=== PATIENT | female | born 1960 | race Caucasian/White ===

== ENCOUNTER 2019-01-22 09:04 | Day surgery (SDC) | payer BC ==
[~2019-01-22] VITALS: Ht 165.1 cm; Wt 56.6 kg
[~2019-01-22 09:04] MED LIST: HYDACE5 PO; IBUP800 PO; MSM1000 MG; NAPR500 PO; PANT40 PO; RXHYDACE PO; VALA500; ZYRTEC10 M1
[2019-01-22] MEDS ORDERED: [UNRECOGNIZED DRUG - OTHER] (09:37)
[2019-01-22] MEDS ORDERED: ZOLP10 (09:37)
[2019-01-22] MEDS ORDERED: ALLEGRA ALLERG180 MG (09:38)
[2019-01-22] MEDS ORDERED: IMVEXXY10 MCG (09:38)
== END 2019-01-22 11:00 | disposition home or self-care (01) ==
LOC: ORSCSDS 09:04
PROVIDERS: Surgery
PROC: 0DJD8ZZ Inspection of Lower Intestinal Tract, Via Natural or Artificial Opening Endoscopic (ICD-10-PCS; principal; 2019-01-22 10:15)
DX: Z12.11 Encounter for screening for malignant neoplasm of colon (principal); A69.20 Lyme disease, unspecified; Z86.010 Personal history of colon polyps; J45.909 Unspecified asthma, uncomplicated; F17.210 Nicotine dependence, cigarettes, uncomplicated; Z79.899 Other long term (current) drug therapy
CPT/HCPCS: J2704; J7120

== ENCOUNTER 2020-09-03 15:04 | Emergency (ER) | payer BC ==
[~2020-09-03] VITALS: Ht 165.1 cm; Wt 59.0 kg
[~2020-09-03 15:04] MED LIST changes: +ALLEGRA ALLERG180 MG; +IMVEXXY10 MCG; +ZOLP10; +[UNRECOGNIZED DRUG - OTHER]
[2020-09-03 15:51] LABS: Source, Urine Clean Catch
[2020-09-03 15:57] LABS: BASOPHILS ABSOLUTE AUTO 0.06 K/mm3 (0.00-0.23); BASOPHILS PERCENT AUTO 1 % (0-2); EOSINOPHILS PERCENT AUTO 1 % (0-6); Hemoglobin 15.8 g/dL (11.5-16.0); IMMATURE GRAN ABSOLUTE AUTO 0.02 K/mm3 (0.00-0.10); IMMATURE GRAN PERCENT AUTO 0 % (0-1); LYMPHOCYTES ABSOLUTE AUTO 2.05 K/mm3 (0.84-5.20); LYMPHOCYTES PERCENT AUTO 24 % (21-46); MONOCYTES ABSOLUTE AUTO 0.64 K/mm3 (0.16-1.47); MONOCYTES PERCENT AUTO 8 % (4-13); Mean Corpuscular HGB 30.8 pg (26.0-34.0); Mean Corpuscular HGB Conc 33.6 g/dL (31.5-36.5); Mean Corpuscular Volume 92 fL (80-100); Mean Platelet Volume 9.9 fL (9.1-12.4); NEUTROPHILS ABSOLUTE AUTO 5.66 K/mm3 (1.96-9.15); NEUTROPHILS PERCENT AUTO 66 % (41-73); Platelet Count 223 K/mm3 (150-400); RDW Coefficient Variation 12.7 % (11.7-14.2); RDW Standard Deviation 43.3 fL (35.1-46.3); Red Blood Cell Count 5.13 M/mm3 (3.80-5.20); White Blood Cell Count 8.53 K/mm3 (4.00-11.30)
[2020-09-03 16:09] LABS: Bilirubin, Urine Neg (Neg); Blood, Urine 5+ (Neg); Glucose Qualitative, Urine Neg (Neg); Ketones, Urine 3+ (Neg); Leukocyte Esterase, Urine Neg (Neg); Nitrite, Urine Neg (Neg); Protein, Urine Neg (Neg); Specific Gravity, Urine 1.025 (1.003-1.022); Urobilinogen, Urine NORM (Normal)
[2020-09-03 16:20] LABS: Appearance, Urine Hazy (Clear); Color, Urine Yellow (P-Yellow)
[2020-09-03 16:21] LABS: Alanine Aminotransfer (ALT/SGP 34 U/L (12-78); Albumin, Blood 3.9 g/dL (3.4-5.0); Albumin/Globulin Ratio 1.1 (0.8-1.8); Alk Phos 48 U/L (50-136); Anion Gap 6 mmol/L (6-16); Aspartate Aminotrans (AST/SGOT 28 U/L (12-37); Bilirubin, Total 0.6 mg/dL (0.1-1.0); Blood Urea Nitrogen 20 mg/dL (8-24); Bun/Creatinine Ratio 24.8 (12.0-20.0); CO2, Blood 26 mmol/L (21-32); Calcium, Blood 9.3 mg/dL (8.5-10.1); Chloride, Blood 106 mmol/L (98-108); Creatinine, Blood 0.81 mg/dL (0.40-1.00); Globulin, Blood 3.6 g/dL (2.2-4.0); Glomerular Filtration Rate >60 (60-); Glucose, Blood 85 mg/dL (70-99); Potassium, Blood 3.9 mmol/L (3.5-5.5); Sodium, Blood 138 mmol/L (136-145); Total Protein, Blood 7.5 g/dL (6.4-8.2)
[2020-09-03 16:23] LABS: Bacteria Mod /hpf; Squamous Epithelial Cells Few /hpf (Few); White Blood Cells, Urine 0-2 /hpf (0-5)
== END 2020-09-03 18:20 | disposition home or self-care (01) ==
LOC: ER 15:04
PROVIDERS: Physician Assistant
DX: K59.00 Constipation, unspecified (principal)
CPT/HCPCS: 36415; 74177; 80053; 81001; 83690; 85025; 87086; 99284-25; Q9967

== ENCOUNTER 2020-11-25 06:14 | Day surgery (SDC) | payer BC ==
[~2020-11-25] VITALS: Ht 165.1 cm; Wt 58.6 kg
[~2020-11-25 06:14] MED LIST changes: +Fluocinonide15 GM; +PROAIR DIGIHAL90 MCG INH; +THYROID T PO; +VALA500 PO; +ZOLP5 PO
--- NOTE | 2020-11-25 07:42 | NUR ---
11/25/20 0742 Earl Bar BUPIVACAINE 0.5% 30 MLS MIXED WITH EPI 0.15ML PER ORDER TO MAKE BUPIVACAINE 0.5% 1:200,000 FOR INJECTION AT OPSITE BY DR RYAN FOR PAIN CONTROL.
== END 2020-11-25 11:50 | disposition home or self-care (01) ==
LOC: ORSCSDS 06:14
PROVIDERS: Podiatrist Foot & Ankle Surgery
PROC: 0SGH04Z Fusion of Right Tarsal Joint with Internal Fixation Device, Open Approach (ICD-10-PCS; principal; 2020-11-25 07:30)
PROC: 0QSN04Z Reposition Right Metatarsal with Internal Fixation Device, Open Approach (ICD-10-PCS; principal; 2020-11-25 07:30)
PROC: 0QSQ04Z Reposition Right Toe Phalanx with Internal Fixation Device, Open Approach (ICD-10-PCS; principal; 2020-11-25 07:30)
PROC: 0SGM04Z Fusion of Right Metatarsal-Phalangeal Joint with Internal Fixation Device, Open Approach (ICD-10-PCS; principal; 2020-11-25 07:30)
DX: M21.611 Bunion of right foot (principal); M20.41 Other hammer toe(s) (acquired), right foot; M77.41 Metatarsalgia, right foot
CPT/HCPCS: A9270; C1713; C1769; J0171; J1100; J1885; J2370; J2405; J2704; J3010; J7120

== ENCOUNTER → 2022-07-30 | Outpatient (CLI) | payer BC ==
[~2022-07-30] MED LIST changes: +ALLEGRA ALLERG180 MG PO; +CARAC30 G2; +CLOBETASOL EMOL15 G2; +Diflucan150 MG PO; +ECONAZOLE NITRA30 GM; +ESTRADIOL42.5 GM VAG; +NYSTATIN15 GM
[2022-08-02 12:08] LABS: HSV-2 IGG SUPPLEMENTAL TEST Positive (Negative)
== END | disposition home or self-care (01) ==
LOC: LAB 15:21 → LAB SHORT 15:21
PROVIDERS: Physician Assistant
DX: B00.9 Herpesviral infection, unspecified (principal)
CPT/HCPCS: 86695; 86696

== ENCOUNTER 2023-01-07 11:00 | Day surgery (SDC) | payer BC ==
[~2023-01-07] VITALS: Ht 165.1 cm; Wt 57.2 kg
[2023-01-07] MEDS ORDERED: ERGO400 (11:45)
[2023-01-07] MEDS ORDERED: [UNRECOGNIZED DRUG - OTHER] (11:45)
[2023-01-07] MEDS ORDERED: TURMERIC1 GM (11:46)
[2023-01-07] MEDS ORDERED: VITAMIN C 500500 MG (11:46)
[2023-01-07] MEDS ORDERED: Vitamin B-12100 MCG (11:46)
[2023-01-07] MEDS ORDERED: ZINC15 (11:47)
[2023-01-07] MEDS ORDERED: MORINGA (11:47)
[2023-01-07] MEDS ORDERED: MSM500 MG (11:47)
[2023-01-07] MEDS ORDERED: [UNRECOGNIZED DRUG - OTHER] (11:48)
--- NOTE | 2023-01-07 13:14 | NUR ---
01/07/23 1314 Pedro Heller 0.15ML OF EPI 1MG/ML ADDED TO 30ML OF ROPIVICAINE 0.5% TO CREATE A LOCAL SOLUTION OF ROPIVICAINE 0.5% WITH EPI 1:200,000.
[2023-01-07 15:08] VITALS: BP 113/80
--- NOTE | 2023-01-07 15:49 | NUR ---
01/07/23 1548 Laurence Mitchell DURING DISCHARGE, PT STATED THAT SHE TAKES MULTIPLE SUPPLEMENTS AT HOME THAT INCLUDE TURMERIC, D3, ETC AND WAS CONCERNED THAT THOSE THIN THE BLOOD, AND THAT DR. RYAN HAD PRESCRIBED HER ASPIRIN 81 MG BID. SPOKE TO DR. RYAN, WHO SAID THAT HE WAS OK WITH HER TAKING THE ASPIRIN ONCE DAILY. PER DR. RYAN, CHANGED THE DISCHARGE INSTRUCTIONS TO INCLUDE ASPIRIN ONCE DAILY.
== END 2023-01-07 15:35 | disposition home or self-care (01) ==
LOC: ORSCSDS 11:00
PROVIDERS: Podiatrist Foot & Ankle Surgery
PROC: 0QBP0ZZ Excision of Left Metatarsal, Open Approach (ICD-10-PCS; principal; 2023-01-07 12:30)
PROC: 0QSP04Z Reposition Left Metatarsal with Internal Fixation Device, Open Approach (ICD-10-PCS; principal; 2023-01-07 12:30)
PROC: 0SGJ04Z Fusion of Left Tarsal Joint with Internal Fixation Device, Open Approach (ICD-10-PCS; principal; 2023-01-07 12:30)
PROC: 0L8W0ZZ Division of Left Foot Tendon, Open Approach (ICD-10-PCS; principal; 2023-01-07 12:30)
DX: M21.612 Bunion of left foot (principal); M20.42 Other hammer toe(s) (acquired), left foot; M77.42 Metatarsalgia, left foot; J45.909 Unspecified asthma, uncomplicated; Z79.899 Other long term (current) drug therapy
CPT/HCPCS: A9270; C1713; C1769; J0171; J0690; J1100; J2371; J2405; J2704; J2795; J3010; J7120